=== PATIENT | female | born 1985 | race Caucasian/White ===

== ENCOUNTER → 2017-01-30 | Outpatient (CLI) | payer BC ==
[~2017-01-30] VITALS: Ht 160 cm; Wt 113.9 kg
[~2017-01-30] MED LIST: BIRTH CONTROL PILLS; CRYSELLE 30 MCG1 TAB PO; IMITREX100 MG PO; PROVENTIL0.09 MG/A1 IH; TOPAMAX 25MG25 M1 PO
== END ==
LOC: SUN.CLI 15:52
DX: E66.01 Morbid (severe) obesity due to excess calories (principal); Z71.3 Dietary counseling and surveillance; E28.2 Polycystic ovarian syndrome